=== PATIENT | female | born 1970 | race Caucasian/White ===

== ENCOUNTER 2017-01-09 16:22 | Observation (INO) | payer OTHER ==
[~2017-01-09] VITALS: Ht 154.9 cm; Wt 77.0 kg
[2017-01-09] MEDS: ASPIRIN 81 MG ENTERIC TAB PO SCH (09:00)
--- NOTE | 2017-01-09 18:00 | REPUSA ---
CLINICAL HISTORY: CVA. TECHNIQUE: Multiple axial brain CT scan sections were obtained from base to vertex without contrast a dministration. COMMENTS: The study shows normal configuration of sella turcica. There are no intra or extra-axial collections. There is no mass effect or midline shift. There is no evidence of hematoma formation. No hydrocephal us is present. No abnormal calcifications are noted. No significant abnormalities are seen either in the posterior fossa or supratentorial compartment. The sinuses and mastoid air cells are patent. IMPRESSION: No evidence of acute intracranial pathology. Consider follow up with MRI with diffusion if clinicall y warranted. Thank you for your kind referral of this patient.
[2017-01-09 18:09] LABS: ANION GAP 4 MEQ/L (8-16); BLOOD UREA NITROGEN 8 MG/DL (7-18); CALCIUM LEVEL 9.3 MG/DL (8.5-10.1); CARBON DIOXIDE LEVEL 29 MEQ/L (21-32); CHLORIDE LEVEL 110 MEQ/L (98-107); CREATININE FOR GFR 0.75 MG/DL (0.55-1.02); GLOMERULAR FILTRATION RATE > 60.0 (>58); GLUCOSE, FASTING 112 MG/DL (70-105); POTASSIUM SERUM 4.1 MEQ/L (3.5-5.1); SODIUM LEVEL 143 MEQ/L (136-145)
[2017-01-09 18:22] LABS: BASO # 0.1 K/mm3 (0.0-0.2); EOS # 0.3 K/mm3 (0.0-0.50); EOS % 4.8 % (0.0-3.0); LARGE UNSTAINED CELL # 0.1 K/mm3 (0.0-0.4); LYMPH # 1.2 K/mm3 (1.5-4.5); LYMPH % 19.6 % (24.0-44.0); MEAN CORPUSCULAR HEMOGLOBIN 29.2 pg (27.0-33.0); MEAN CORPUSCULAR HGB CONC 33.2 g/dl (32.0-36.5); MEAN CORPUSCULAR VOLUME 87.9 fl (80.0-96.0); MONO # 0.3 K/mm3 (0.0-0.8); NEUTROPHILS # 4.3 K/mm3 (1.8-7.7); NEUTROPHILS % 69.6 % (36.0-66.0); PLATELET COUNT, AUTOMATED 291 k/mm3 (150-450); RED CELL DISTRIBUTION WIDTH 13.1 % (11.5-14.5); WHITE BLOOD COUNT 6.2 K/mm3 (4.0-10.0)
[2017-01-09 18:32] LABS: INR 0.82
--- NOTE | 2017-01-09 20:30 | REPUSA ---
CLINICAL HISTORY: EXTREME DIZZINESS, SLURRED SPEECH, AND STRANGE FEELING OF SOME TINGLING/BURNING AR OUND EARS TECHNIQUE: MRI of the brain was performed without administration of intravenous contrast material. T1 spine echo, T2 fast spin echo, DWI and FLAIR sequences were obtained in sagittal, axial and coronal planes. FINDINGS: The sella and parasellar regions are unremarkable in appearance. The corpus callosum and cerebellar t onsils are of normal configuration and position. There are no intra or extra-axial collections. There is no mass effect or midline shift. There is no evidence of hematoma formation. There is no hydrocep halus. The brain stem shows no mass effects, infarcts or hemorrhage. There are no cerebellopontine tumors. T he acoustic nerves are symmetrical. No cerebellar intra-axial pathology delineated. The fourth ventri rick and aqueduct are normal. No abnormalities of the optic nerves are identified. There is no evidenc e of atrophic or degenerative changes. No dural or subdural masses or collections are detected. There is no restricted diffusion noted. The visualized arterial structures demonstrate normal appearing flow voids. The VII and VIII nerve bu ndles are visualized and are unremarkable in appearance. Several foci of T2/FLAIR hyperintensity are noted in the bilateral periventricular white matter. The foci measure up to 4 mm in length. Some have perpendicular configuration with respect to lateral vent ricles (Sanchez's fingers). This is highly suspicious for demyelinating disease. Clinical correlation and follow-up contrast enhanced study is recommended. IMPRESSION: White matte foci of as above, highly suspicious for demyelinating disease. Clinical correlation and f ollow-up contrast enhanced study is recommended. Thank you for your kind referral of this patient.
--- NOTE | 2017-01-09 20:40 | REPUSA ---
CLINICAL HISTORY: EXTREME DIZZINESS, SLURRED SPEECH, AND STRANGE FEELING OF SOME TINGLING/BURNING AR OUND EARS TECHNIQUE: Three dimensional [id number] angiography is performed of the [place]. The terrence dy was performed without IV contrast agent. FINDINGS: The supraclinoid portions of the internal carotid arteries are of normal shape. The normal bifurcation is seen. The middle cerebral arteries are unremarkable in appearance. The posterior circu lation is visualized and shows no evidence of occlusion or aneurysm formation. The basilar tip is see n and shows no aneurysm formation. There is no evidence of beading to suggest vasculitis. IMPRESSION: MRA of the [place] is within normal limits. Thank you for your kind referral of this patient.
[2017-01-09 22:31] LABS: BASO % 0.8 % (0.0-1.0); EOS # 0.2 K/mm3 (0.0-0.50); EOS % 3.5 % (0.0-3.0); LARGE UNSTAINED CELL # 0.1 K/mm3 (0.0-0.4); LARGE UNSTAINED CELL % 1.4 % (0.0-4.0); LYMPH # 2.1 K/mm3 (1.5-4.5); LYMPH % 30.6 % (24.0-44.0); MEAN CORPUSCULAR HEMOGLOBIN 28.8 pg (27.0-33.0); MEAN CORPUSCULAR HGB CONC 33.5 g/dl (32.0-36.5); MEAN CORPUSCULAR VOLUME 85.9 fl (80.0-96.0); MONO # 0.2 K/mm3 (0.0-0.8); MONO % 3.7 % (0.0-5.0); NEUTROPHILS # 3.9 K/mm3 (1.8-7.7); NEUTROPHILS % 60.1 % (36.0-66.0); PLATELET COUNT, AUTOMATED 302 k/mm3 (150-450); RED CELL DISTRIBUTION WIDTH 13.3 % (11.5-14.5); WHITE BLOOD COUNT 6.4 K/mm3 (4.0-10.0)
[2017-01-09 23:25] VITALS: BP 130/83
--- NOTE | 2017-01-09 23:40 | REPUSA ---
CLINICAL HISTORY: Abnormal MRI. TECHNIQUE: MRI of the Brain with gadolinium. COMPARISON: Same-day noncontrast brain MR. Post Contrast: No regions of abnormal enhancement. IMPRESSION: The white matter lesions discussed on the noncontrast exam are nonenhancing, and likely n onacute in etiology.
[2017-01-10] MEDS: ACETAMINOPHEN TAB 650MG DOSE (2X325MG) PO PRN ×2 (00:20→08:26)
[2017-01-10 04:00] VITALS: BP 110/70
[2017-01-10 06:53] LABS: ALBUMIN 3.6 GM/DL (3.2-5.2); ALBUMIN/GLOBULIN RATIO 1.16 (1.00-1.93); ALKALINE PHOSPHATASE 73 U/L (45-117); ALT/SGPT 26 U/L (12-78); ANION GAP 6 MEQ/L (8-16); AST/SGOT 17 U/L (15-37); BILIRUBIN,TOTAL 0.7 MG/DL (0.2-1.0); BLOOD UREA NITROGEN 8 MG/DL (7-18); CALCIUM LEVEL 8.7 MG/DL (8.5-10.1); CARBON DIOXIDE LEVEL 27 MEQ/L (21-32); CHLORIDE LEVEL 109 MEQ/L (98-107); CREATININE FOR GFR 0.78 MG/DL (0.55-1.02); GLOMERULAR FILTRATION RATE > 60.0 (>58); GLUCOSE, FASTING 92 MG/DL (70-105); SODIUM LEVEL 142 MEQ/L (136-145); T UPTAKE 34 % (30-39); TOTAL PROTEIN 6.7 GM/DL (6.4-8.2)
[2017-01-10 08:00] VITALS: BP 122/74
[2017-01-10] MEDS: ASPIRIN 81 MG ENTERIC TAB PO SCH (08:26)
--- NOTE | 2017-01-10 08:39 | REP ---
Portable chest x-ray: Single view. History: CVA. No comparison views. Findings: EKG monitoring electrodes overlie the chest. Lungs are well inflated and clear. Cardiomediastinal silhouette and bony thorax are unremarkable. Impression: No acute disease. Signed by Dale Guerrero MD 01/10/2017 09:01 A
[2017-01-10] MEDS ORDERED: IBUPROFEN 800 MG TAB PO PRN (10:45)
[2017-01-10] MEDS ORDERED: ACETAMINOPHEN 500 MG TAB PO PRN (10:45)
--- NOTE | 2017-01-10 10:53 | REP ---
Duplex carotid sonography: History: TIA. Findings: Antegrade flow is observed in both vertebral arteries. Right carotid: The right common carotid artery is unremarkable on two-dimensional scanning. No significant plaquing is seen in the bulb, proximal ICA or proximal ECA on the right side. Color flow and spectral Doppler interrogation are unremarkable on the right. Velocity chart right carotid: Right CCA PSV 86 cm/s Right ICA PSV 71 EDV 33 Right ECA PSV 79 Right ICA/CCA ratio normal 0.8. Impression: Unremarkable right carotid duplex sonography. No significant plaquing or evidence of stenosis. Left carotid: The left common carotid artery is unremarkable on the two-dimensional scanning. No significant plaquing is seen in the bulb or proximal ICA. Color flow and spectral Doppler interrogation are unremarkable on the left. Velocity chart left carotid: Left CCA PSV 91 cm/s Left ICA PSV 62 EDV 22 Left ECA PSV 75 Left ICA/CCA ratio normal 0.7. Impression: Unremarkable left carotid duplex sonography. No significant plaquing or evidence of stenosis. Signed by Dale Guerrero MD 01/10/2017 11:32 A
[2017-01-10 12:00] VITALS: BP 106/75
[2017-01-10] MEDS ORDERED: ACET50TA PO (13:16)
[2017-01-10] MEDS ORDERED: VERA40TA PO ×3 (13:37→13:39)
--- NOTE | 2017-01-10 20:30 | CR ---
DATE OF CONSULTATION: 01/10/2017 REFERRING PROVIDER: Cassie Rao NP REASON FOR CONSULTATION: Headache and episode of slurred speech and visual aura. HISTORY OF PRESENT ILLNESS: Nicole Deutsch is a 46-year-old woman with history of chronic migraines for many years. She has headaches and migraines 12-15 days per month, which range between 6-10 out of 10 in intensity, pressure or throbbing in character in frontal head region and she feels changes in her visual gomez with photophobia, phonophobia, nausea, dizziness and at times blurred vision. Yesterday she was visiting her mother in this area and had a headache in the morning. They went out to the stores for shopping. She was coming out of a store and felt strange pain. She went to her car and felt frustrated and confused at times. She felt her tongue was tied and her balance was off, although her mother did not think that there was anything wrong with her speech and her walking. She felt burning pain in her ears. She felt as if she would faint. She tried to calm herself down. Her daughter decided to drive back home to [place], [place]. As she said in the car she felt light flashes in upper parts of her visual gomez on both sides. She fell burning pain in her ears again and felt as if she would faint. She had a couple more episodes of light flashes which lasted for a couple of minutes. Her last episode was in the emergency department. She denies any neck pain, back pain, seizures, dysphagia, dysarthria, diplopia or urinary incontinence. DIAGNOSTIC STUDIES: Her MRI scan of brain was reviewed and showed few nonspecific white matter punctate foci which are commonly seen in migraines. Radiologist dictated that her MRI scan of brain was highly suspicious for demyelinating disease of brain. MRA of brain and carotid ultrasound were within normal limits. PAST MEDICAL HISTORY: Migraines. HOME MEDICATIONS: - Tylenol or ibuprofen as needed SOCIAL HISTORY: She denies smoking, alcohol or illicit drugs. FAMILY HISTORY: Father and paternal aunts have history of migraines. ALLERGIES: PENICILLIN, CIPROFLOXACIN. REVIEW OF SYSTEMS: All systems were reviewed and found to be noncontributory except as mentioned in history of present illness. PHYSICAL EXAMINATION: Temperature 97.9, pulse 64, respiratory rate 18, blood pressure 106/75. Heart regular rate and rhythm. Lungs clear to auscultation. Abdomen soft, nontender, nondistended. No pedal edema. Peripheral pulses are palpable. Ears, nose, throat examination is within normal limits. No gross musculoskeletal abnormalities. The patient is awake, alert, oriented to place, person and time. Normal speech comprehension and repetition. Extraocular muscles are intact. No facial weakness. Tongue and uvula are Midline. 5/5 strength in all four extremities. Deep tendon reflexes 2+ throughout. Gait is normal. There is no dysmetria or ataxia. She is able to do tandem walking. Her recent and distant memory is intact. There is no tremor. Visual gomez are full to confrontation. ASSESSMENT: 1. Migraines with visual aura, intractable, without status migrainosus. 2. Episodic tension headaches, not intractable. 3. Her MRI scan of brain with and without contrast showed few nonspecific white matter punctate foci likely consistent with migraines, but radiologist has a suspicion for demyelinating disease of brain. PLAN: 1. Verapamil 60 mg by mouth twice a day and gradually increase it as blood pressure allows for migraine prevention. 2. Nortriptyline or amitriptyline or Depakote as contingency plan. She had kidney stones in past so Topamax or zonisamide will be relatively contraindicated. 3. Botox or occipital nerve blocks as contingency plan. 4. Follow with our office in 2 weeks after hospital discharge.
--- NOTE | 2017-01-11 06:56 | ECHO ---
DATE OF PROCEDURE: 01/10/2017 HEIGHT: 61 inches WEIGHT: 170 pounds BODY SURFACE AREA: 1.76 meters squared Inpatient PCU room 3227 REFERRING PHYSICIAN: Cassie Rao NP INDICATION: TIA - cardiac source? MEASUREMENTS: 2-D Measurements: RV - 3.7 cm LV - 3.9 cm Septum - 0.9 cm Posterior wall - 0.9 cm Aortic root - 2.8 cm LA - 3.7 cm LVEF - 65% Doppler Measurements: AV - 1.4 m/s LVOT - 1.2 m/s MV-E - 110, A - 74, E/A ratio 1.5 Early mitral deceleration time -183 ms E prime - 8.2, A prime - 11, E/E prime ratio -13 PV - 0.8 m/s Pulmonary artery acceleration time - 137 ms RVSP - 26 mmHg IVC - 1.7 cm COMMENTS: Normal sinus rhythm without intraventricular conduction disturbance. Two-dimensional, M-mode, echocardiography was performed with the pulsed, continuous wave, color flow, and tissue Dopplers. CONCLUSIONS: Unable to detect an intracardiac source of embolic material. Normal cardiac chamber sizes, wall thickness and hyperkinetic wall motion. Normal appearing and functioning valvular structures. No sign of vegetation.
--- NOTE | 2017-01-11 09:22 | HPE ---
DATE OF ADMISSION: 01/09/2017 CHIEF COMPLAINT: Slurred speech, dizziness. HISTORY OF PRESENT ILLNESS: This is a 46-year-old female who was visiting her mother in the area. They went shopping. She came out of the store and she felt strange. She went to her car. She felt frustrated, like she could not maneuver the seat. She felt confused. She stated that her tongue felt like it was not moving correctly. She felt tongue-tied. Her balance was off. Her mother states that her speech seemed clear. She got in the car to drive back home to [place], [place] where she felt light flashes in the right upper part of her visual field. She felt a burning pain in her ears and thought she felt lightheaded like she might pass out and came to the emergency room. Upon arrival, her blood pressure was elevated at 176/104, pulse 120, respirations 16, temperature was 98.2. She was alert and oriented, was having no difficulty with speech at that time. She had no neck pain or back pain. She had no difficulty swallowing. She had one short episode of the light flashes, which seemed to last 1-2 minutes, but did not return. LABORATORY STUDIES: White count was 6.2, hemoglobin 14.3, hematocrit 43.1, platelets were normal at 291. Sodium 143, potassium 4.1, chloride 110, CO2 29, anion gap 4, BUN 8, creatinine 0.75. CPK, CK-MB and troponin were normal. Pro-time was 1.4, INR 0.82, APTT was 26.9. She had a CT of the head, which showed no evidence of acute intracranial pathology. She had a chest x-ray that showed no acute disease. She had an MRI of the brain that showed radiology interpretation of white matter foci as above, highly suspicious for demyelinating disease, and this was an MRI without contrast. She had an MRA, which showed [place] within normal limits. Vital signs were monitored. Her blood pressure improved. She was less anxious. It was 130/84 with respirations of 16, oxygen saturation was 98% on room air. Assessment was done. Discussed with neurologist, Dr. Vogel, who recommended MRI with contrast. Patient will be admitted to observation status for transient ischemic attack (TIA). EKG was done, showed sinus rhythm at 78. Patient will be admitted to progressive care unit (PCU) and also placed on telemetry observation status. ALLERGIES: Amoxicillan, ciprofloxin. SOCIAL HISTORY: She is . She does not drink alcohol. She does not smoke cigarettes. She does not use recreational drugs. PAST MEDICAL HISTORY: She states she has had borderline blood pressure has been working with diet and exercise and has been controlled. PAST SURGICAL HISTORY: 1. (C) section. 2. Tubal ligation. 3. Appendectomy. HOME MEDICATIONS: - verapamil 60 mg by mouth twice a day - Tylenol as needed for headache FAMILY HISTORY: Noncontributory. REVIEW OF SYSTEMS: Unremarkable other than as described in the history of present illness (HPI). PHYSICAL EXAMINATION: 46-year-old cooperative female in no acute distress. Height 61 inches. Weight 77 kg. Body mass index (BMI) 32.1. The patient is alert and oriented times three. Pupils equal and reactive to light. Extraocular muscles (EOMs) are intact. Cornea and sclerae clear. Conjunctivae were normal. No facial asymmetry. Pharynx, tongue and gums pink and moist. Tongue is midline. Neck is supple without lymphadenopathy. No thyromegaly. No goiter. Carotids 2 + without bruit. Chest clear to auscultation without wheeze or retraction. Heart is regular. Abdomen is benign. Bowel sounds positive. /rectal: Not done. Extremities show equal strength, full range of motion. No cyanosis, clubbing or edema. Peripheral pulses equal and palpable bilaterally. Skin is warm and dry. Cranial nerves II-XII grossly intact. IMPRESSION AND PLAN: Admit to progressive care unit (PCU). Place on telemetry for transient ischemic attack (TIA). MRI with contrast as recommended by neurology to rule out any demyelinating disease. Consult neurology. Patient will be admitted observation status. CHANTALD
--- NOTE | 2017-01-11 10:52 | DSES ---
DATE OF ADMISSION: 01/09/2017 DATE OF DISCHARGE: 01/10/2017 DIAGNOSES: Migraines with visual aura. Episodic tension headaches. History of kidney stones. Abnormal MRI thought to be due to migraines rather than demyelinating disease. DISCHARGE MEDICATIONS: - Tylenol 1000 mg every 6 hours as needed pain - verapamil 60 mg by mouth twice a day HOSPITAL COURSE: This is a 46-year-old who with history of migraines 12 to 15 days per month with changes in her visual gomez and photophobia, nausea, phonophobia, dizziness, and at times blurred vision presented to the emergency room when she had a episode of severe headache. She was also feeling frustrated and confused at times and felt her tongue was tied and her balance was off although family accompanying her did not think there was anything wrong with her speech or her walking. She feels burning pain in her ears and felt as if she would faint. She also felt light flashes in her upper visual gomez in both sides. She about two more episodes of this. Each of the flashes lasted a couple of minutes. She came to the emergency room for an evaluation in the ED (emergency department). Patient had an MRI and MRA of the brain done. The MRI showed nonspecific white matter foci suspicious for demyelinating disease, however, contrast MRI was again done which showed there is a nonspecific and chronic noncontrast enhancement. Patient was seen by neurology and the MRI abnormalities were felt to be related to migraine attack. Patient was started on verapamil for chronic migraine prevention. On the day of discharge patient's pain has had almost resolved. Patient's vitals were still functioning at baseline. PHYSICAL EXAMINATION: VITAL SIGNS: Temperature 97.9, pulse 64, respiratory rate 18, blood pressure 106/75, pulse oximetry 90% on room air. GENERAL: Patient awake, alert, oriented times three, sitting up in bed in no acute distress. HEENT: Normocephalic atraumatic. Moist mucous membranes. Anicteric eyes. CHEST: Clear to auscultation. CARDIOVASCULAR: S1, S2, regular, no rub, murmur, or gallop. ABDOMEN: Soft, nontender. Bowel sounds present. EXTREMITIES: No edema. LABORATORY DATA: WBC 6.4, hemoglobin 13.3, platelet 302, sodium 142, potassium 4, chloride 109, bicarbonate 27, BUN 8, creatinine 0.7, glucose 92, liver function tests are normal. TSH is normal. DISPOSITION: Patient is discharged home in stable condition. DISCHARGE INSTRUCTIONS: Patient to followup Dr. Vogel in 2 weeks. Patient to follow with primary care provider in 1 week. Regular diet and activity as tolerated.
--- NOTE | 2017-01-12 08:33 | ECGEPIP ---
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
== END 2017-01-10 14:31 | disposition home or self-care (01) ==
LOC: M ED 16:57 → M ED INP 21:45 → M PCU 23:23
PROVIDERS: ADMIT Internal Medicine Nephrology; ATTEND Internal Medicine Nephrology
DX: G43.119 Migraine with aura, intractable, without status migrainosus (principal); G44.219 Episodic tension-type headache, not intractable; Z79.899 Other long term (current) drug therapy
CPT/HCPCS: 36415; 70450; 70544; 70551; 70552; 71010; 80048; 80053; 82550; 82553; 84436; 84443; 84479; 85025; 85610; 85730; 86850; 86900; 86901; 93005; 93041; 93880; 94760; 99285; A9576